=== PATIENT | male | born 1975 | race Caucasian/White ===

== ENCOUNTER 2017-01-26 16:56 | Inpatient (IN) | payer BC, OTHER ==
[~2017-01-26] VITALS: Ht 177.8 cm; Wt 90.7 kg
[2017-01-26 17:36] VITALS: BP 164/104
[2017-01-26] MEDS ORDERED: ACETAMINOPHEN 325 MG TABLET PO PRN (17:45)
[2017-01-26] MEDS ORDERED: ONDANSETRON 4 MG/2 ML VIAL IM PRN (17:45)
[2017-01-26] MEDS ORDERED: LOPERAMIDE HCL 2 MG CAPSULE PO PRN ×2 (17:45)
[2017-01-26] MEDS ORDERED: MAG HYDROX/AL HYDROX/SIMETH 30 ML LIQUID UDC PO PRN (17:45)
[2017-01-26] MEDS ORDERED: LORAZEPAM 1 MG TABLET PO PRN ×2 (17:45)
[2017-01-26] MEDS ORDERED: IBUPROFEN 400 MG TABLET PO PRN (17:45)
[2017-01-26] MEDS ORDERED: LORAZEPAM 2 MG/1 ML VIAL IM PRN (17:45)
[2017-01-26] MEDS ORDERED: MIRALAX 17 GM POWD.PACK PO PRN (17:45)
[2017-01-26] MEDS ORDERED: hydrALAZINE HCL 25 MG TABLET PO PRN (17:45)
[2017-01-26] MEDS ORDERED: DICYCLOMINE HCL 20 MG TABLET PO PRN (17:45)
[2017-01-26] MEDS ORDERED: THIAMINE HCL 200 MG/2 ML VIAL IM ONE (17:45)
[2017-01-26] MEDS ORDERED: diphenhydrAMINE 50 MG CAPSULE PO PRN (17:45)
[2017-01-26] MEDS ORDERED: ONDANSETRON ODT 4 MG TAB.RAPDIS SL PRN (17:45)
[2017-01-26] MEDS ORDERED: MAGNESIUM HYDROXIDE 30 ML LIQUID UDC PO PRN (17:45)
[2017-01-26 18:28] LABS: BASOPHILS % (AUTO) 0.4 % (0.0-2.0); EOSINOPHILS % (AUTO) 0.5 % (0.0-7.0); HEMATOCRIT 43.5 % (40-50); HEMOGLOBIN 14.4 G/DL (14.0-18.0); LYMPHOCYTES # (AUTO) 1.4 K/UL (0.8-4.8); LYMPHOCYTES % (AUTO) 14.7 % (20.5-51.5); MEAN CORPUSCULAR HEMOGLOBIN 31.8 UUG (27.0-31.0); MEAN CORPUSCULAR HGB CONC 33 g/dL (32.0-37.0); MONOCYTES # (AUTO) 0.8 K/UL (0.1-1.30); MONOCYTES % (AUTO) 8.6 % (0.0-11.0); NEUTROPHILS % (AUTO) 75.8 % (38.5-71.5); PLATELET COUNT (AUTO) 252 K/UL (150-450); RED BLOOD CELL COUNT(AUTO) 4.53 MIL/UL (4.7-6.1); WHITE BLOOD COUNT (AUTO) 9.2 K/UL (4.0-11.2)
[2017-01-26 18:38] LABS: ALANINE AMINOTRANSFERASE 44 U/L (16-63); ALKALINE PHOSPHATASE 86 U/L (50-136); AMYLASE 77 U/L (25-115); ASPARTATE AMINOTRANSFERASE 24 U/L (15-37); BILIRUBIN,TOTAL 0.2 mg/dL (0.2-1.0); CARBON DIOXIDE 25 mmol/L (21-32); CHLORIDE 100 mmol/L (98-107); GLUCOSE 104 mg/dL (74-106); LIPASE 271 U/L (73-393); POTASSIUM 3.7 mmol/L (3.5-5.1); TOTAL PROTEIN, SERUM 8.2 g/dL (6.4-8.2); UREA NITROGEN, BLOOD 12 mg/dL (7-18)
[2017-01-26 18:43] LABS: ETHANOL < 3 MG/DL (0-0)
[2017-01-26] MEDS: LORAZEPAM 1 MG TABLET PO SCH ×2 (18:44→22:24)
[2017-01-26 18:45] LABS: *AMPHETAMINE, URINE POSITIVE (NEGATIVE); *BARBITURATE, URINE NEGATIVE (NEGATIVE); *CANNABINOID, URINE NEGATIVE (NEGATIVE); *COCCAINE, URINE NEGATIVE (NEGATIVE); *OPIATE, URINE NEGATIVE (NEGATIVE); *PHENCYCLIDINE SCREEN,URINE NEGATIVE (NEGATIVE)
[2017-01-26 18:59] LABS: THYROID STIMULATING HORMONE 0.946 mIU/mL (0.358-3.740)
[2017-01-26 20:51] VITALS: BP 154/98
[2017-01-27] MEDS ORDERED: SERT100T PO (00:04)
[2017-01-27] MEDS ORDERED: DIPH25TA62 PO (00:04)
[2017-01-27] MEDS ORDERED: TRAZODONE 50 MG TABLET PO ONE (00:45)
[2017-01-27 00:46] VITALS: BP 144/106
[2017-01-27] MEDS: CLONIDINE HCL 0.1 MG TABLET PO PRN (00:54)
[2017-01-27 04:15] VITALS: BP 123/89
[2017-01-27 08:33] VITALS: BP 129/88
[2017-01-27] MEDS: LORAZEPAM 1 MG TABLET PO SCH ×4 (08:44→20:47)
[2017-01-27] MEDS: MULTIVITAMINS,THERAPEUTIC TABLET PO SCH (08:44)
[2017-01-27] MEDS: THIAMINE HCL 100 MG TABLET PO SCH (08:44)
[2017-01-27] MEDS: FOLIC ACID 1 MG TABLET PO SCH (08:44)
[2017-01-27] MEDS ORDERED: TUBERCULIN,PURIF.PROT.DERIV. 5 TU/0.1 ML TEST ID ONE (09:00)
[2017-01-27 12:15] VITALS: BP 120/95
[2017-01-27] MEDS: SERTRALINE HCL 100 MG TABLET PO SCH (13:05)
[2017-01-27 16:49] VITALS: BP 123/86
[2017-01-27 20:35] VITALS: BP 118/72
[2017-01-27] MEDS: TRAZODONE 100 MG TABLET PO SCH (20:47)
[2017-01-27] MEDS: GABAPENTIN 300 MG CAPSULE PO SCH (20:47)
[2017-01-27] MEDS ORDERED: CLONIDINE HCL 0.1 MG TABLET PO SCH (21:00)
[2017-01-28 00:11] VITALS: BP 118/71
[2017-01-28 04:08] VITALS: BP 115/68
[2017-01-28 08:00] VITALS: BP 100/72
[2017-01-28] MEDS: MULTIVITAMINS,THERAPEUTIC TABLET PO SCH (09:02)
[2017-01-28] MEDS: THIAMINE HCL 100 MG TABLET PO SCH (09:02)
[2017-01-28] MEDS: LORAZEPAM 1 MG TABLET PO SCH ×3 (09:02→21:21)
[2017-01-28] MEDS: SERTRALINE HCL 100 MG TABLET PO SCH (09:02)
[2017-01-28] MEDS: GABAPENTIN 300 MG CAPSULE PO SCH ×3 (09:02→21:21)
[2017-01-28] MEDS: FOLIC ACID 1 MG TABLET PO SCH (09:02)
[2017-01-28 12:00] VITALS: BP 114/78
[2017-01-28 12:09] LABS: HEPATITIS B SURFACE AG Negative (Negative)
[2017-01-28 16:00] VITALS: BP 110/75
[2017-01-28 20:00] VITALS: BP 123/86
[2017-01-28] MEDS: TRAZODONE 100 MG TABLET PO SCH (21:21)
[2017-01-28] MEDS: CLONIDINE HCL 0.1 MG TABLET PO SCH (21:23)
[2017-01-29 08:00] VITALS: BP 102/63
[2017-01-29] MEDS: FOLIC ACID 1 MG TABLET PO SCH (09:30)
[2017-01-29] MEDS: GABAPENTIN 300 MG CAPSULE PO SCH (09:30)
[2017-01-29] MEDS: MULTIVITAMINS,THERAPEUTIC TABLET PO SCH (09:30)
[2017-01-29] MEDS: LORAZEPAM 1 MG TABLET PO SCH ×4 (09:30→20:05)
[2017-01-29] MEDS: THIAMINE HCL 100 MG TABLET PO SCH (09:31)
[2017-01-29] MEDS: CLONIDINE HCL 0.1 MG TABLET PO SCH ×2 (09:31→20:05)
[2017-01-29] MEDS: SERTRALINE HCL 100 MG TABLET PO SCH (09:31)
[2017-01-29 12:00] VITALS: BP 121/65
[2017-01-29] MEDS ORDERED: BACLOFEN 20 MG TABLET PO PRN (13:00)
[2017-01-29] MEDS ORDERED: diphenhydrAMINE 50 MG CAPSULE PO PRN (15:15)
[2017-01-29 16:00] VITALS: BP 126/70
[2017-01-29] MEDS: NICOTINE POLACRILEX 4 MG GUM-PK OF TEN BC PRN ×2 (16:59→20:05)
[2017-01-29 20:00] VITALS: BP 114/78
[2017-01-29] MEDS: TRAZODONE 100 MG TABLET PO SCH (20:05)
[2017-01-29] MEDS ORDERED: GABAPENTIN 300 MG CAPSULE PO SCH (21:00)
[2017-01-30 08:00] VITALS: BP 112/75
[2017-01-30] MEDS: MULTIVITAMINS,THERAPEUTIC TABLET PO SCH (08:35)
[2017-01-30] MEDS: FOLIC ACID 1 MG TABLET PO SCH (08:35)
[2017-01-30] MEDS: THIAMINE HCL 100 MG TABLET PO SCH (08:35)
[2017-01-30] MEDS: LORAZEPAM 1 MG TABLET PO SCH ×3 (08:36→20:39)
[2017-01-30] MEDS: SERTRALINE HCL 100 MG TABLET PO SCH (08:36)
[2017-01-30] MEDS: CLONIDINE HCL 0.1 MG TABLET PO SCH ×2 (08:36→20:39)
[2017-01-30] MEDS ORDERED: GABAPENTIN 300 MG CAPSULE PO SCH (09:00)
[2017-01-30 12:00] VITALS: BP 108/70
[2017-01-30] MEDS: GABAPENTIN 300 MG CAPSULE PO SCH ×2 (14:02→20:40)
[2017-01-30] MEDS: BACLOFEN 10 MG TABLET PO SCH ×2 (14:02→20:40)
[2017-01-30] MEDS: LIDOCAINE 5% PATCH TD SCH (14:02)
[2017-01-30] MEDS: NICOTINE POLACRILEX 4 MG GUM-PK OF TEN BC PRN ×2 (14:54→18:38)
[2017-01-30 16:00] VITALS: BP 110/79
[2017-01-30 20:00] VITALS: BP 114/85
[2017-01-30] MEDS: TRAZODONE 100 MG TABLET PO SCH (20:40)
[2017-01-31] VITALS: BP 120/83
[2017-01-31] MEDS: NICOTINE POLACRILEX 4 MG GUM-PK OF TEN BC PRN ×4 (00:25→22:56)
[2017-01-31 08:13] VITALS: BP 114/81
[2017-01-31] MEDS: MULTIVITAMINS,THERAPEUTIC TABLET PO SCH (08:25)
[2017-01-31] MEDS: GABAPENTIN 300 MG CAPSULE PO SCH ×3 (08:26→20:14)
[2017-01-31] MEDS: THIAMINE HCL 100 MG TABLET PO SCH (08:26)
[2017-01-31] MEDS: CLONIDINE HCL 0.1 MG TABLET PO SCH ×2 (08:26→20:11)
[2017-01-31] MEDS: BACLOFEN 10 MG TABLET PO SCH ×3 (08:26→20:14)
[2017-01-31] MEDS: LORAZEPAM 1 MG TABLET PO SCH ×2 (08:26→20:13)
[2017-01-31] MEDS: FOLIC ACID 1 MG TABLET PO SCH (08:26)
[2017-01-31] MEDS: LIDOCAINE 5% PATCH TD SCH (08:27)
[2017-01-31] MEDS: SERTRALINE HCL 100 MG TABLET PO SCH (08:27)
[2017-01-31 12:38] VITALS: BP 102/67
[2017-01-31] MEDS: CLONIDINE HCL 0.1 MG TABLET PO PRN (15:37)
[2017-01-31 17:29] VITALS: BP 126/84
[2017-01-31 20:00] VITALS: BP 107/74
[2017-01-31] MEDS: IBUPROFEN 600 MG TABLET PO PRN (20:10)
[2017-01-31] MEDS: TRAZODONE 100 MG TABLET PO SCH (20:14)
[2017-02-01 08:00] VITALS: BP 100/64
[2017-02-01] MEDS: MULTIVITAMINS,THERAPEUTIC TABLET PO SCH (09:51)
[2017-02-01] MEDS: CLONIDINE HCL 0.1 MG TABLET PO SCH ×2 (09:51→20:23)
[2017-02-01] MEDS: BACLOFEN 10 MG TABLET PO SCH (09:51)
[2017-02-01] MEDS: NICOTINE POLACRILEX 4 MG GUM-PK OF TEN BC PRN ×5 (09:51→23:11)
[2017-02-01] MEDS: FOLIC ACID 1 MG TABLET PO SCH (09:51)
[2017-02-01] MEDS: GABAPENTIN 300 MG CAPSULE PO SCH ×3 (09:51→20:22)
[2017-02-01] MEDS: THIAMINE HCL 100 MG TABLET PO SCH (09:51)
[2017-02-01] MEDS: IBUPROFEN 600 MG TABLET PO PRN ×2 (09:51→20:22)
[2017-02-01] MEDS: LIDOCAINE 5% PATCH TD SCH (09:52)
[2017-02-01] MEDS: SERTRALINE HCL 100 MG TABLET PO SCH (09:52)
[2017-02-01] MEDS ORDERED: SERT100T12 PO (11:17)
[2017-02-01] MEDS ORDERED: GABA-534 PO (11:17)
[2017-02-01] MEDS ORDERED: IBUP-1955 PO (11:17)
[2017-02-01] MEDS ORDERED: LIDO30AD10 TD (11:17)
[2017-02-01] MEDS ORDERED: TRAZ-147 PO (11:17)
[2017-02-01] MEDS ORDERED: CLON0.1T14 PO (11:17)
[2017-02-01] MEDS ORDERED: DIPH50CA37 PO (11:17)
[2017-02-01] MEDS ORDERED: BACL20TA PO (11:17)
[2017-02-01 12:00] VITALS: BP 107/80
[2017-02-01] MEDS: BACLOFEN 20 MG TABLET PO SCH ×2 (15:33→20:22)
[2017-02-01 16:00] VITALS: BP 109/73
[2017-02-01 17:26] LABS: *AMPHETAMINE, URINE NEGATIVE (NEGATIVE); *BARBITURATE, URINE NEGATIVE (NEGATIVE); *CANNABINOID, URINE NEGATIVE (NEGATIVE); *COCCAINE, URINE NEGATIVE (NEGATIVE); *OPIATE, URINE NEGATIVE (NEGATIVE); *PHENCYCLIDINE SCREEN,URINE NEGATIVE (NEGATIVE)
[2017-02-01 20:00] VITALS: BP 109/79
[2017-02-01] MEDS ORDERED: HYDROXYZINE PAMOATE 25 MG CAPSULE PO PRN (20:15)
[2017-02-01] MEDS: TRAZODONE 100 MG TABLET PO SCH (20:22)
[2017-02-01] MEDS: CLONIDINE HCL 0.1 MG TABLET PO PRN (23:11)
[2017-02-02] VITALS: BP 114/83
[2017-02-02 08:00] VITALS: BP 120/79
[2017-02-02] MEDS: FOLIC ACID 1 MG TABLET PO SCH (08:21)
[2017-02-02] MEDS: BACLOFEN 20 MG TABLET PO SCH (08:21)
[2017-02-02 08:22] VITALS: BP 120/72
[2017-02-02] MEDS: CLONIDINE HCL 0.1 MG TABLET PO SCH (08:22)
[2017-02-02] MEDS: MULTIVITAMINS,THERAPEUTIC TABLET PO SCH (08:22)
[2017-02-02] MEDS: LIDOCAINE 5% PATCH TD SCH (08:22)
[2017-02-02] MEDS: GABAPENTIN 300 MG CAPSULE PO SCH (08:22)
[2017-02-02] MEDS: THIAMINE HCL 100 MG TABLET PO SCH (08:22)
[2017-02-02] MEDS: NICOTINE POLACRILEX 4 MG GUM-PK OF TEN BC PRN (09:00)
[2017-02-02] MEDS ORDERED: SERTRALINE HCL 100 MG TABLET PO SCH (09:00)
== END 2017-02-02 10:57 | disposition other institution (70) | DRG 895 ==
LOC: SRC 16:56
PROVIDERS: ADMIT Internal Medicine; ATTEND Internal Medicine
PROC: HZ2ZZZZ Detoxification Services for Substance Abuse Treatment (ICD-10-PCS; principal; 2017-01-26)
PROC: HZ41ZZZ Group Counseling for Substance Abuse Treatment, Behavioral (ICD-10-PCS; 2017-01-27)
PROC: HZ31ZZZ Individual Counseling for Substance Abuse Treatment, Behavioral (ICD-10-PCS; 2017-01-29)
DX: F10.230 Alcohol dependence with withdrawal, uncomplicated (principal); F33.1 Major depressive disorder, recurrent, moderate; F15.10 Other stimulant abuse, uncomplicated; Y90.9 Presence of alcohol in blood, level not specified; K70.9 Alcoholic liver disease, unspecified; G47.00 Insomnia, unspecified; Z81.1 Family history of alcohol abuse and dependence; Z80.1 Family history of malignant neoplasm of trachea, bronchus and lung; F17.220 Nicotine dependence, chewing tobacco, uncomplicated; G89.29 Other chronic pain; M54.5 Low back pain; I15.9 Secondary hypertension, unspecified
CPT/HCPCS: 36415; 70030-TC; 80307; 80324; 80346; 83690; 83735; 84443; 85025; 86592; 86705; 86803; 87340; 87806; A4663; G0480; J3411; Q0163